=== PATIENT | female | born 1940 | race Caucasian/White ===

== ENCOUNTER 2023-07-26 08:54 | Outpatient (CLI) | payer BC, MEDICARE ==
[~2023-07-26 08:54] MED LIST: ESCI10TA45 PO; IRBE150T51 PO; LEVO112T61 PO; NITR50CA4 PO
== END 2023-07-26 23:59 | disposition home or self-care (01) ==
LOC: RAD 08:54
PROVIDERS: ATTEND Family Medicine
DX: S32.591A Other specified fracture of right pubis, initial encounter for closed fracture (principal); S70.01XA Contusion of right hip, initial encounter; X58.XXXA Exposure to other specified factors, initial encounter; Y93.89 Activity, other specified; Y92.89 Other specified places as the place of occurrence of the external cause; Y99.8 Other external cause status
CPT/HCPCS: 72192

== ENCOUNTER 2023-07-26 09:06 | Outpatient (CLI) | payer BC, MEDICARE | END 2023-07-26 23:59 | disposition home or self-care (01) | LOC: RAD 09:06 | PROVIDERS: ATTEND Nurse Practitioner | DX: M25.561 Pain in right knee (principal) | CPT/HCPCS: 73564 ==